=== PATIENT | male | born 1985 | race Caucasian/White ===

== ENCOUNTER 2019-11-20 14:44 | Outpatient (CLI) | payer BC ==
--- NOTE | 2019-11-20 15:06 | RAD ---
3 views left ankle: 11/20/2019 HISTORY: Twisted ankle, pain FINDINGS: Anterior and lateral soft tissue swelling. Talar dome and ankle mortise appear intact. No d isplaced fracture or evidence of dislocation. IMPRESSION: Soft tissue swelling with no displaced fracture or dislocation seen.
== END 2019-11-20 14:45 | disposition home or self-care (01) ==
LOC: SCSRAD 14:44
PROVIDERS: ATTEND Family Medicine
DX: M25.572 Pain in left ankle and joints of left foot (principal); M79.89 Other specified soft tissue disorders

== ENCOUNTER 2020-03-09 07:51 | Outpatient (CLI) | payer BC ==
--- NOTE | 2020-03-09 09:59 | MRI ---
MRI OF THE LEFT ANKLE WITHOUT CONTRAST: HISTORY: M98.8, osteochondral defect of the ankle. COMPARISON: None. FINDINGS: LIGAMENTS: The AITFL and PITFL are intact. The ATFL is torn. This has the appearance of a subacute tear as the re is some granulation tissue bridging the torn fibers. The PTFL is intact. The CFL is torn and thi ckened and appears to be healing. The deep deltoid ligaments are partially avulsed from the medial malleolus. Superficial deltoid liga ments are intact. The inferior longitudinal, medial plantar oblique, and superomedial bands of the spring ligament are intact. There is incomplete fat saturation on the axial T2 fat sat and PT fat sat images giving the appearanc e of edema within the metatarsals and tarsal bones, although this is not seen on the STIR images and likely due to incomplete fat saturation. The Lisfranc ligament is intact, all 3 components. No subl uxation. The dorsal calcaneal cuboid ligament is intact. TENDONS: The Achilles tendon is intact. The extensor tendons are intact. There is moderate increased tenosyn ovial fluid on all 3 flexor tendons at the level of the ankle including the flexor halluces longus be fore the knot of Chan. No subluxation of the peroneal tendons. The fiberosseous ridge is intact. No longitudinal split tea r is appreciated. BONES: No fracture. No malalignment. No osteochondral defect of the talar dome. MUSCLES: Muscle signal and bulk is normal. SOFT TISSUES: The plantar fascia is intact. IMPRESSION: 1. Torn anterior talofibular ligament with some granulation tissue bridging the torn fibers as well as torn calcaneofibular ligament. 2. Tear of the deep deltoid ligaments, only a partial grade I tear of the anterior deep deltoid liga ment with a grade II partial tear of the posterior deep deltoid ligament. 3. Mild likely reactive tenosynovitis of the flexor tendons at the level of the ankle. 4. Intact Lisfranc interval without subluxation. Intact Lisfranc ligament. 5. No osteochondral defect. POS: HOME
== END 2020-03-09 07:52 | disposition home or self-care (01) ==
LOC: SCSMRI 07:51
PROVIDERS: ATTEND Emergency Medicine Sports Medicine
DX: M25.572 Pain in left ankle and joints of left foot (principal); M21.962 Unspecified acquired deformity of left lower leg; S93.492A Sprain of other ligament of left ankle, initial encounter; S93.422A Sprain of deltoid ligament of left ankle, initial encounter

== ENCOUNTER 2021-02-11 03:14 | Emergency (ER) | payer BC ==
[2021-02-11] MEDS ORDERED: Boostrix 0.5 ML (Tdap) VIAL ONE (03:20)
== END 2021-02-11 03:37 | disposition home or self-care (01) ==
LOC: ERS 03:14
DX: S01.112A Laceration without foreign body of left eyelid and periocular area, initial encounter (principal); S50.312A Abrasion of left elbow, initial encounter; I10 Essential (primary) hypertension; W50.0XXA Accidental hit or strike by another person, initial encounter
CPT/HCPCS: 12011; 90715

== ENCOUNTER 2022-08-27 12:45 | Outpatient (CLI) | payer OTHER | END 2022-08-27 12:46 | disposition home or self-care (01) | LOC: SCSRAD 12:45 | PROVIDERS: ATTEND Family Medicine | DX: R05.9 Cough, unspecified (principal) | CPT/HCPCS: 71046 ==